=== PATIENT | male | born 1945 | race African-American/Black ===

== ENCOUNTER 2018-10-18 13:48 | Emergency (ER) | payer OTHER, MEDICARE ==
--- NOTE | 2018-10-18 14:42 | RADIOLOGY REPORT (SQ) ---
EXAM DESCRIPTION: KNEE LEFT 4 VIEW COMPLETED DATE/TIME: 10/18/2018 2:34 pm REASON FOR STUDY: left knee pain COMPARISON: None. NUMBER OF VIEWS: Four views. TECHNIQUE: AP, lateral, and both oblique radiographic images acquired of the left knee. LIMITATIONS: None. FINDINGS: MINERALIZATION: Normal. BONES: No acute fracture or dislocation. No worrisome bone lesions. JOINT: Status post total knee arthroplasty. SOFT TISSUES: Soft tissue swelling of the anterior knee. No radio-opaque foreign body. OTHER: No other significant finding. IMPRESSION: No fracture dislocation of the left knee. Status post total arthroplasty. Soft tissue swelling of the anterior knee. TECHNICAL DOCUMENTATION: JOB ID: [id number] [employer]- All Rights Reserved Reading location - IP/workstation name: [email or web address]
--- NOTE | 2018-10-18 15:44 | ER Document Report ---
HPI - HPI Time Seen by Provider: 10/18/18 15:08 Pain Level: 3 Notes: Patient is a 73-year-old male presents the emergency department chief complaint of left knee pain. Patient reports history of chronic pain to this area, states he has had a knee replacement in the past. Patient reports he recently moved to the area and has not established care with a PCP yet. Patient denies taking any medications for the pain. He denies any direct trauma to the area. - CONSTITUTIONAL Constitutional: DENIES: Fever, Chills - MUSCULOSKELETAL Musculoskeletal: REPORTS: Extremity pain - L knee Past Medical History - General Information source: Patient - Social History Smoking Status: Never Smoker Frequency of alcohol use: None Drug Abuse: None Family History: Reviewed & Not Pertinent Patient has suicidal ideation: No Patient has homicidal ideation: No - Medical History Medical History: Negative Renal/ Medical History: Denies: Hx Peritoneal Dialysis Surgical Hx: Negative - Immunizations Immunizations up to date: Yes Vertical Provider Document - CONSTITUTIONAL Notes: PHYSICAL EXAMINATION: GENERAL: Well-appearing, well-nourished and in no acute distress. HEAD: Atraumatic, normocephalic. EYES: Pupils equal round extraocular movements intact, conjunctiva are normal. ENT: Nares patent NECK: Normal range of motion LUNGS: No respiratory distress Musculoskeletal: Limited range of motion to left knee, no warmth, erythema or ecchymosis noted. Strong dorsalis pedis pulse, normal motor and sensation distal to area of concern. PSYCH: Normal mood, normal affect. SKIN: Warm, Dry, normal turgor, no rashes or lesions noted. - INFECTION CONTROL TRAVEL OUTSIDE OF THE [place] IN LAST 30 DAYS: No Course - Re-evaluation Re-evalutation: Knee X-Ray 10/18/18 14:13 IMPRESSION: No fracture dislocation of the left knee. Status post total arthroplasty. Soft tissue swelling of the anterior knee. The x-ray was negative does show soft tissue swelling of the anterior knee. Patient does have a history of chronic knee pain and bursitis. Will start patient on NSAIDs with plan to follow-up with PCP and orthopedics. Patient and are in agreements with this plan. Strict ED return precautions were discussed. The patient's emergency department workup and current diagnosis were explained to the patient and or family. Follow-up instructions were provided. Medications if prescribed were discussed. Instructions for when to return to the emergency department including specific worrisome symptoms were discussed with the patient and/or family. - Vital Signs Vital signs: Temp Pulse Resp BP Pulse Ox 98.8 F 77 18 129/56 H 99 10/18/18 13:59 10/18/18 13:59 10/18/18 13:59 10/18/18 13:59 10/18/18 13:59 Discharge - Discharge Clinical Impression: Bursitis Qualifiers: Bursitis location: knee Knee bursitis location: unspecified Laterality: left Qualified Code(s): M70.52 - Other bursitis of knee, left knee Condition: Stable Disposition: HOME, SELF-CARE Additional Instructions: Bursitis You have been diagnosed as having bursitis. Bursitis is an inflammation of a fluid pouch (bursa) found near joints. This is usually due to repeated minor irritation, or pressure directly on the bursa. On occasion, the bursitis can be due to infection (your doctor has checked for this). Sometimes the doctor decides to remove the fluid from the bursa with a needle. This may be to examine the fluid for infection or to ease the pressure caused by the fluid. The usual treatment is rest, local warmth, (or cold if the bursitis is caused by an acute injury), and antiinflammatory medication. Occasionally, an injection of cortisone is necessary. You should call the doctor for re-examination if the pain increases significantly, or if the area becomes severely swollen and red, or fever develops. Prescriptions: Diclofenac Sodium [Voltaren] 100 gm TP BID #100 gm Walker [Folding Walker] 1 each MC ASDIR PRN #1 each PRN Reason: Referrals: MATT COLBY DO [ACTIVE STAFF] - Follow up as needed
[2018-10-18] MEDS ORDERED: IBUPROFEN 600 MG TABLET PO ONE (15:47)
[2018-10-18 16:00] VITALS: BP 147/65
== END 2018-10-18 16:01 | disposition home or self-care (01) ==
LOC: ER 13:48
DX: M70.52 Other bursitis of knee, left knee (principal); M25.562 Pain in left knee
CPT/HCPCS: 99283

== ENCOUNTER → 2018-10-27 | Outpatient (CLI) | payer OTHER ==
--- NOTE | 2018-10-27 12:31 | RADIOLOGY REPORT (SQ) ---
EXAM DESCRIPTION: NM 3 PHASE BONE SCAN COMPLETED DATE/TIME: 10/27/2018 12:02 pm REASON FOR STUDY: PAIN IN LEFT KNEE M25.562 PAIN IN LEFT KNEE COMPARISON: 10/18/2018 radiograph RADIONUCLIDE AND DOSE: 22 millicuries Tc99m HDP. The route of agent administration: Intravenous. ADDITIONAL DRUGS AND DOSES: None. TECHNIQUE: Following injection of the radiopharmaceutical, serial blood flow images acquired. Equil ibrium blood pool images then acquired. Routine delayed images at 3 hour acquired of the areas of cl inical concern with additional focused images as needed. AREA OF INTEREST: Left knee LIMITATIONS: None. FINDINGS: VASCULAR FLOW IMAGES: There is asymmetrically increased uptake within the region of the la teral left knee noted on blood flow images. . BLOOD POOL IMAGES: There is persistent asymmetrically increased uptake within the left knee involving the soft tissues, greatest along the superolateral aspect of the knee. BONES: Delayed imaging demonstrates asymmetric focal activity most pronounced within the left lateral aspect of the patella. There is an additional mild asymmetric uptake noted within the distal femur and proximal tibia. KIDNEYS: Symmetric excretion without obstruction. OTHER: No other significant finding. IMPRESSION: Increased activity within the subcutaneous tissues along the left lateral knee on vascul ar flow on blood pool imaging compatible with hyperemia/inflammation. Additional delayed imaging dem onstrates more focal activity within the lateral aspect of the left patella. COMMENT: Quality measure 147: Current bone scan is compared with any available plain radiographs, p rior bone scans, and CT/MRI. TECHNICAL DOCUMENTATION: JOB ID: [id number] [facility]- All Rights Reserved Reading location - IP/workstation name: [email or web address]
== END ==
LOC: RAD 08:22
PROVIDERS: ATTEND Orthopaedic Surgery
DX: M25.562 Pain in left knee (principal)
CPT/HCPCS: 78315; A9561; Q9969